=== PATIENT | male | born 1930 | race Caucasian/White ===

== ENCOUNTER → 2016-06-19 | Outpatient (CLI) | payer MEDICARE | LOC: HEART 5 09:49 | DX: I47.2 Ventricular tachycardia (principal); I49.01 Ventricular fibrillation; I50.22 Chronic systolic (congestive) heart failure; I51.7 Cardiomegaly; I27.2 Other secondary pulmonary hypertension; I34.0 Nonrheumatic mitral (valve) insufficiency | CPT/HCPCS: 93306 ==